=== PATIENT | male | born 1965 | race Two or more races ===

== ENCOUNTER → 2019-10-22 | Outpatient (CLI) | payer OTHER | END | disposition home or self-care (01) | LOC: LAB 14:13 | PROVIDERS: ATTEND Internal Medicine Gastroenterology | DX: Z01.818 Encounter for other preprocedural examination (principal); Z11.59 Encounter for screening for other viral diseases | CPT/HCPCS: U0003-CS ==

== ENCOUNTER → 2019-10-25 | Day surgery (SDC) | payer OTHER ==
[~2019-10-25] MED LIST: IV RINGERS,LACTATED 1000ML 1,000 ML IV SCH; LIDOCAINE 2% PF 5 ML VIAL. ONE; PROPOFOL 10 MG/ML (20ML) VIAL. IV ONE
--- NOTE | 2019-10-25 15:22 | PDOC1 ---
HISTORY AND PHYSICAL Date of Service: DATE: 10/25/19 TIME: 15:19 Chief Complaint Chief Complaint This year old male has been admitted with a chief complaint of .colon cancer screening Past Medical History PMH mild constipation - o/w no GI symptoms Review of Symptoms Review of Systems A 14 point ROS was completed with the following noted as positive: Other systems reviewed and negative. Medications Medications reviewed. Physical Exam Physical Exam General appearance - alert,well appearing, and in no distress and oriented to person, place, and time Mental Status - alert, oriented to person, place, and time, affect appropriate to mood Head - normal Chest - clear to auscultation, no wheezes, rales or rhonchi, symmetric air entry Heart - S1 and S2 normal Abdomen - soft, nontender, nondistended, no masses or organomegaly Neurological - alert and oriented Musculoskeletal - no muscular tenderness noted Extremities - no pedal edema Skin - warm and dry VTE Prophylaxis Ordered VTE Prophylaxis Devices: No VTE Pharmacological Prophylaxi: No Plan Plan screening colonoscopy Justicifation of Admission Dx: Justifications for Admission: Justification of Admission Dx: No OZIEL MOSCOSO MD Oct 25, 2019 15:22
[2019-10-25 15:59] VITALS: BP 106/63
== END | disposition home or self-care (01) ==
LOC: ENDOS 13:43
PROVIDERS: ATTEND Internal Medicine Gastroenterology
DX: Z12.11 Encounter for screening for malignant neoplasm of colon (principal); K64.8 Other hemorrhoids; K59.00 Constipation, unspecified
CPT/HCPCS: 45378; J2704